=== PATIENT | male | born 1950 | race Caucasian/White ===

== ENCOUNTER → 2024-03-29 14:01 | Outpatient (REF) | payer MEDICARE, OTHER, SELFPAY | LOC: RAD 14:01 | PROVIDERS: ATTENDING PHYSICIAN Family Medicine | DX: M79.89 Other specified soft tissue disorders (principal) | CPT/HCPCS: 73610; 73630 ==

== ENCOUNTER → 2024-08-11 10:30 | Outpatient (REF) | payer MEDICARE, OTHER, SELFPAY | LOC: RAD 10:30 | PROVIDERS: ATTENDING PHYSICIAN Internal Medicine Critical Care Medicine; FAMILY PHYSICIAN Family Medicine | DX: F17.210 Nicotine dependence, cigarettes, uncomplicated (principal) | CPT/HCPCS: 71271 ==

== ENCOUNTER → 2025-01-04 16:47 | Outpatient (REF) | payer MEDICARE, OTHER, SELFPAY | LOC: RAD 16:47 | PROVIDERS: ATTENDING PHYSICIAN Family Medicine | DX: R41.82 Altered mental status, unspecified (principal) | CPT/HCPCS: 70450 ==

== ENCOUNTER → 2025-02-17 10:38 | Outpatient (REF) | payer MEDICARE, OTHER, SELFPAY | LOC: RAD 10:38 | PROVIDERS: ATTENDING PHYSICIAN Physician Assistant | DX: J22 Unspecified acute lower respiratory infection (principal) | CPT/HCPCS: 71046 ==

== ENCOUNTER 2025-02-20 19:44 | Inpatient (IN) | payer MEDICARE, OTHER, SELFPAY ==
[2025-02-20] VITALS (8 sets, daily range): BP systolic 95–132; BP diastolic 43–66; BMI 20.4
[2025-02-20 15:20] LABS: % Basophils 0.4 % (0-2); % Eosinophils 0.2 % (0-6); % Immature Granulocytes 0.6 % (0-0.5); % Lymphocytes 17.3 % (20.5-51.1); % Monocytes 10.6 % (1.7-9.3); % Neutrophils 70.9 % (42.2-75.2); Absolute Lymphocytes 0.9 10^3/uL (1.2-3.4); Absolute Monocytes 0.5 10^3/uL (0.1-0.6); Absolute Neutrophils 3.5 10^3/uL (1.4-6.5); Hematocrit 28.7 % (39.0-52.0); Hemoglobin 9.9 g/dL (13.0-18.0); Mean Corp Hgb Conc. 34.5 g/dL (33.0-37.0); Mean Corpuscular Volume 104.4 fL (80.0-94.0); Nucleated Red Blood Cells % 0 % (-); Platelet Count 248 10^3/uL (130-400); Red Blood Cell Count 2.75 10^6/uL (4.70-6.10); Red Cell Dist. Width 17.9 % (11.5-14.5); White Blood Cell Count 4.9 10^3/uL (4.8-10.8)
[2025-02-20 15:36] LABS: ALT (SGPT) 27 U/L (0-50); AST (SGOT) 23 U/L (17-59); Albumin 3.4 g/dl (3.5-5.0); Alkaline Phosphatase 69 U/L (38-126); Blood Urea Nitrogen 25 mg/dl (9-20); Carbon Dioxide 25 mmol/L (22-30); Chloride 102 mmol/L (98-107); Glucose 157 mg/dl (70-99); Potassium 4.6 mmol/L (3.5-5.1); Sodium 136 mmol/L (135-145); eGFR > 60.00
--- NOTE | 2025-02-20 18:36 | ED.GENMED ---
History of Present Illness
General
Chief Complaint: Pneumonia Symptoms
Source: patient and spouse
Exam Limitations: none
Time Seen by Provider: 02/20/25 18:06
Nursing documentation reviewed up to this point in time: agreed with
History of Present Illness
History of Present Illness:
Patient with history of glioblastoma, presents to ED secondary to persistent fever, cough, and shortness of breath, along with decreased appetite over the past 6 days. Patient was evaluated by his primary care physician 3 days ago. Outpatient
chest x-ray revealed pneumonia and he was started on doxycycline and Augmentin, without improvement symptoms. Denies vomiting or diarrhea. Denies chest pain. Denies recent travel. Denies sick contact.
Review of Systems
Review of Systems
Allergies reviewed?: Yes
All Other Systems: ROS reviewed and negative except as documented in HPI and ROS
Constitutional: Reports fever and chills
EENT: Reports no symptoms
Respiratory: Reports cough and trouble breathing
Cardiac: Reports no symptoms
ABD/GI: Reports no symptoms; Denies abdominal pain, vomiting or diarrhea
: Reports no symptoms
Musculoskeletal: Reports no symptoms
Skin: Reports no symptoms
Neurological: Reports no symptoms
Phy Exam
Physical Exam
Physical Exam:
Physical Exam
General: mild distress, not acutely ill. febrile. tachycardic
Head: nc/at. eomi
Neck: supple. no meningeal signs.
Heart: s1/s2 regular rate and rhythm, no murmur.
Lungs: no acute respiratory distress. diminished breath sounds bilaterally
Abdomen: normal bowel sounds. not tender.
Neuro: alert and oriented x 3. no focal neurological deficits
Skin: no rash
Psychiatric: well kept. interactive and cooperative
Extremities: no edema. no calf tenderness.
Course
Orders/Labs/Results
Orders:
Orders
02/20/25 15:14
Complete Blood Count/With Diff Urgent
Comprehensive Metabolic Panel Urgent
02/20/25 18:31
Lactic Acid Q4H
Comment: CANCEL 2nd LACTIC ACID IF 1st LACTIC ACID IS LESS THAN 2
Blood Culture Q30M
JETT Source: Blood/Venous
Specimen Description:
02/20/25 18:33
Piperacillin/Tazo 3.375 Gram [Zosyn] 3.375 gram in 50 ml IV NOW
02/20/25 18:34
0.9% Sodium Chloride 500 ml [Nss] 500 ml IV BOLUS
Albuterol Nebs [Ventolin Nebules] 2.5 mg INH R NOW STA
Guaifenesin/Codeine Solution [Robitussin AC] 10 ml PO NOW STA
02/20/25 18:39
COVID-19 Antigen Urgent
Source: Nasal Swab
Blood Culture Q30M
JETT Source: Blood/Venous
Specimen Description:
Influenza A+B Rapid Molecular Urgent
JETT Source: Nasal Swab
Specimen Description:
02/20/25 19:25
Vancomycin [Vancocin] 1,500 mg 0.9% Sodium Chloride 500 ml [Nss] 500 ml IV NOW
02/20/25 19:28
Admit/Transfer Patient As Directed
Co-Sign Provider:
Level of Care: Inpatient admission
Assign to:: Medical/Surgical
Physician / Group: hospitalist
Diagnosis: pneumonia
Reason for Hospitalization: pneumonia
Expected length of stay greater than two midnights?: Yes
ELOS- Estimated Length of Stay in days: 2
I certify the patient meets the requirements for IP care: Yes
PRN Pain Medication Management As Directed
May give lesser potent ordered pain med per pt: Yes
preference::
Protocol:: Medication orders for pain may be administered in a
manner that supports deferring to patient preference
when the pt is:
- Requesting an ordered lesser potent pain medication.
Least to most potent pain medications are defined
as: acetaminophen < NSAID < tramadol < opioids
(morphine, oxycodone, hydromorphone).
- Requesting a lesser dose of the same medication IF
ORDERED.
- Requesting a less intrusive route of administration
if both routes are prescribed by the provider (PO <
IV).
02/20/25 19:29
Code Status As Directed
Resuscitation Status: Full Code
02/20/25 22:30
Lactic Acid Q4H
Comment: CANCEL 2nd LACTIC ACID IF 1st LACTIC ACID IS LESS THAN 2
Abnormal Lab Results
02/20/25 02/20/25
15:14 18:31
RBC 2.75 L 10^6/uL
(4.70-6.10)
Hgb 9.9 L g/dL
(13.0-18.0)
Hct 28.7 L %
(39.0-52.0)
MCV 104.4 H fL
(80.0-94.0)
MCH 36.0 H pg
(27.0-31.0)
RDW 17.9 H %
(11.5-14.5)
Absolute Lymphs (auto) 0.9 L 10^3/uL
(1.2-3.4)
Immature Gran % 0.6 H %
(0-0.5)
Lymphocytes % 17.3 L %
(20.5-51.1)
Monocytes % 10.6 H %
(1.7-9.3)
BUN 25 H mg/dl
(9-20)
Glucose 157 H mg/dl
(70-99)
Lactic Acid 2.4 H mmol/L
(0.7-2.0)
Total Protein 6.0 L g/dl
(6.3-8.2)
Albumin 3.4 L g/dl
(3.5-5.0)
04/28/25 15:14
02/20/25 15:14
Vital Signs
Initial and Last Documented VS:
Initial Vital Signs
Temp Pulse Resp BP Pulse Ox
97.9 F 100 18 116/65 98
02/20/25 15:02 02/20/25 15:02 02/20/25 15:02 02/20/25 15:02 02/20/25 15:02
Last Documented Vital Signs
Temp Pulse Resp BP Pulse Ox
98.7 F 110 28 132/57 94
02/20/25 18:20 02/20/25 18:18 02/20/25 18:18 02/20/25 18:18 02/20/25 18:20
MDM/Problems Addressed
MDM/Problems Addressed:
Chest x-ray from 02/17/2025 reviewed. History, exam, and chest x-ray consistent with sepsis, secondary to pneumonia. Patient will be started on broad spectrum abx and admitted for further evaluation/treatment.
*Critical Care Note
Total Time (30-74mins, 75-104mins- exclusive of procedures): Not Applicable
ED Attending Note
-
Portions of this chart may have been created with voice recognition software.� Occasional wrong word or��sound alike� substitutions may have occurred due to the inherent limitations of voice recognition software.
Discharge Plan
Departure
Patient Disposition: Admit
Date of Disposition: 02/20/25
Time of Disposition: 18:40
Admit to: Telemetry
Presentation/result/management discussed w/ accepting MD/DO: Hospitalist
Discharge Problem:
Sepsis, Pneumonia
Interventions
Interventions:
*Risk Screen - Suicide Last Done: 02/20/25 15:05
*General Assessment Last Done: 02/20/25 15:05
*Neglect/Abuse Screening Last Done: 02/20/25 15:05
*ED- Fall Risk Assessment Last Done: 02/20/25 18:08
*ED COVID-19 Vaccine History Last Done: 02/20/25 15:05
ED- Cardiac Assessment Last Done: 02/20/25 18:20
ED- Pulmonary Assessment Last Done: 02/20/25 18:20
[2025-02-20] MEDS: NSS 500 IV (18:48)
[2025-02-20] MEDS: ROBITUSSIN AC 10 ML PO (18:48)
[2025-02-20] MEDS: ZOSYN 50 IV (18:50)
[2025-02-20] MEDS: VENTOLIN NEBULES 2.5 MG INH (18:50)
[2025-02-20 18:59] LABS: Lactic Acid 2.4 mmol/L (0.7-2.0)
[2025-02-20 19:05] LABS: COVID-19 Antigen Negative (Negative)
--- NOTE | 2025-02-20 19:20 | HPS.HSE ---
Family Physician
-
Family Physician: Karthik Whatley
Chief Complaint
-
Cough fevers and shortness of breath
History of Present Illness
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
worsening cough.
Patient started having symptoms about 5 days ago. Was seen in clinic and had a x-ray done. The x-ray on 425 shows right lower lobe inferior opacity concerning for pneumonia. Patient was started on doxycycline and Augmentin. After 2 days patient
continued to have cough fevers and chills. Is weak. Cough is productive of brownish sputum. He reports dyspnea on exertion. He denies having any chest pain.
His last dose of days was 1 week ago for 7 days.
He had craniotomy on January 06 and is pending radiation.
He has nodules on x-ray which are new compared to prior.
Here in the emergency department he was afebrile, blood pressure was 135/57 he was tachycardic to 110 and was satting 94% on room air. Respiratory rate was 28.
CBC was unremarkable we will white count of 4.9 hemoglobin of 10 and bili of 248. Lactic acid was elevated 2.4. Electrolytes BUN/creatinine were normal.
Medical History
Past Medical History
Past Medical History: Reports Cancer (MDS, stage IV glioblastoma status post craniectomy), COPD (Not on home O2), HTN and Other (On seizure prophylaxis)
Past Surgical History: Reports Brain (Left temporal craniotomy)
Social History
Tobacco: Smoker
Alcohol: None
Drug: None
Personal:
Living: With Family
Family History
Family History: Not pertinent
Allergies / Home Medications
Allergies reflects when Allergies were last updated in [facility].
Home Medications with original date entered in [facility]
Allergy/Medication List:
Allergies
Allergy/AdvReac Type Severity Reaction Status Date / Time
No Known Allergies Allergy Unverified 02/20/25 15:04
Home Medications
levocetirizine 5 mg tablet 5 mg PO DAILYPRN PRN nasal congestion 08/14/22
tamsulosin 0.4 mg capsule 0.8 mg PO DAILY 08/14/22
verapamil 80 mg tablet 80 mg PO BID 08/14/22
acetaminophen 325 mg tablet (Tylenol) 650 mg PO Q6HPRN PRN MILD PAIN 02/20/25
amoxicillin 875 mg-potassium clavulanate 125 mg tablet 1 tab PO BID 02/20/25
azacitidine 100 mg solution for injection 0 mg IV DIRECTED 02/20/25
budesonide 160 mcg-glycopyr 9 mcg-formot 4.8 mcg/actuation HFA inhaler (ESBATechztri Aerosphere) 2 inh inhalation R BID 02/20/25
doxycycline hyclate 100 mg capsule 100 mg PO BID 02/20/25
epoetin karly-epbx 3,000 unit/mL injection solution (Retacrit) 0 unit SC TU 02/20/25
levetiracetam 100 mg/mL oral solution (Keppra) 500 mg PO BID 02/20/25
lidocaine-prilocaine 2.5 %-2.5 % topical cream 1 applic topical DAILYPRN PRN PORT ACCESS 02/20/25
ondansetron HCl 8 mg tablet 8 mg PO [id number] PRN NUASEA 02/20/25
therapeutic multivitamin 1 tab PO DAILY 02/20/25
Review of Systems
-
Unable to obtain full review of systems at this time due to: Dementia
Constitutional: Reports Fever
EENT: Reports No Symptoms
Respiratory: Reports Cough
Cardiac: Reports No Symptoms
Abdomen/GI: Reports No Symptoms
: Reports No Symptoms
Musculoskeletal: Reports No Symptoms
Skin: Reports No Symptoms
Neurological: Reports No Symptoms
Endocrine: Reports No Symptoms
Hematologic/Lymphatic: Reports No Symptoms
Psych: Reports No Symptoms
Physical Exam
Vital Signs
Vital Signs
Temp Pulse Resp BP Pulse Ox
98.7 F 110 28 132/57 94
02/20/25 18:20 02/20/25 18:18 02/20/25 18:18 02/20/25 18:18 02/20/25 18:20
Physical Exam
General: Well Developed, Well Nourished, No Apparent Distress and Comfortable
HEENT: NormoCephalic, Anicteric, Moist mucous membranes and Atraumatic
Respiratory: Crackles
Cardiac: S1/S2 and Tachycardia
Breast: Deferred by me
GI: Soft, Non Tender, Non Distended and Normal Bowel Sounds
Rectal: Deferred by Provider
Genito-urinary: Deferred by me
Musculoskeletal: No Clubbing, No Cyanosis and No Edema
Skin: Warm
Neuro: AO x 3
Hematologic/Lymphatic: No Lymphadenopathy
Psych: Calm
Laboratory Results
-
02/20/25 15:14
02/20/25 15:14
Laboratory Results
Lactic Acid 2.4 mmol/L (0.7-2.0) H 02/20/25 18:31
Total Bilirubin 1.0 mg/dl (0.2-1.3) 02/20/25 15:14
AST 23 U/L (17-59) 02/20/25 15:14
ALT 27 U/L (0-50) 02/20/25 15:14
Alkaline Phosphatase 69 U/L (38-126) 02/20/25 15:14
Data Reviewed
-
Diagnostic Radiology: Report Reviewed by me
Lab Data: Labs Reviewed by me
Old Records: Reviewed
Impression/Plan
-
IMPRESSION:
75-year-old with history of glioblastoma status post craniectomy status post steroid taper, MDS RVD and Retacrit, COPD not on home O2, here with cough and shortness of breath x 4 days. Fevers at home. Has been on outpatient Augmentin and
doxycycline for the last 20 days without improvement. Here is hemodynamically stable tachycardic with elevated lactic acid. Afebrile. CBC unremarkable. Not hypoxic.
PLAN:
1.Pneumonia -pneumonia complaints patient with failure of outpatient antibiotics
- admit to med/surg
- broad spec abx with Vanc/zosyn
- check urinary legionella and strep ag
- check sputum culture
- blood cultures if febrile
- rule out influenza
- F/U xray
- prednisone 40 daily, duonebs prn
- continue home Breztri
2. GBM - s/p craniectomy with residual tumor
- finished dexamethasone taper
- continue keppra
- DVT PPX - heparin sq
Code Status - Full Code
[2025-02-20] MEDS: VANCOCIN 530 MG IV (19:52)
--- NOTE | 2025-02-20 22:39 | PHA.VAN.IN ---
Assessment
- Assessment
Renal Function: Unknown baseline
Concomitant Antimicrobials: ZOSYN
- Previous Dosing Experience
Previous Regimen: NONE
AUC Dosing Plan
- Dosing Variables
Dosing Weight (kg): 64.5
Dosing CrCl (ml/min): 83
Vd coefficient (L/kg): 0.7
- Empiric Dosing
Initial / Loading Dose: 1500MG
Maintenance Regimen: 750MG IV Q12H
Estimated AUC (mcg*h/mL): 470
Estimated Peak (mcg*h/mL): 28.4
Estimated Trough (mcg/ml): 12.7
Estimated Half Life (H): 9.5
Pharmacokinetics Vancomycin I
- -
Patient Age: 75
Patient Sex: Male
Vancomycin Day #: 1
Indication: Pulmonary/Respiratory
Requesting Provider: PAULA
Height / Weight:
Height 5 ft 10 in
Actual Weight 64.467 kg
Pertinent Past Medical History: MDS;GLIOBLASTOMA STAGE 4
- Vital Signs / Lab Results
Temp Pulse Resp BP Pulse Ox
100.4 F H 117 16 98/61 95
02/20/25 21:30 02/20/25 21:30 02/20/25 21:30 02/20/25 21:30 02/20/25 21:30
Lab Results - Hematology
02/20/25
15:14
WBC 4.9
Lab Results - Chemistry
02/20/25
15:14
BUN 25 H
Creatinine 0.7
Albumin 3.4 L
02/20/25
18:31
Lactic Acid 2.4 H
Microbiology Results
02/20/25 18:39 Influenza Types A & B (FRANCISCO) - Final
Nasal Swab Negative for Influenza A & B, NAAT
Negative results must be combined with clinical observations
and patient history.
Nucleic Acid Amplification test (NAAT)performed on the
[employer] platform.
[2025-02-20] MEDS: KEPPRA 500 MG PO (22:42)
[2025-02-20] MEDS: MUCINEX 600 MG PO (22:42)
[2025-02-20] MEDS: ISOPTIN 80 MG PO (22:42)
[2025-02-20 23:40] LABS: Lactic Acid 2.9 mmol/L (0.7-2.0)
[2025-02-21] MEDS: ZOSYN 50 IV ×4 (00:49→17:31)
[2025-02-21] MEDS: HEPARIN 5000 UNITS SC ×3 (00:53→17:29)
[2025-02-21] MEDS: NSS 1000 IV ×2 (00:53→12:22)
[2025-02-21 04:10] LABS: Hematocrit 23.5 % (39.0-52.0); Hemoglobin 8.2 g/dL (13.0-18.0); Mean Corp Hgb Conc. 34.9 g/dL (33.0-37.0); Mean Corpuscular Hgb 36.6 pg (27.0-31.0); Mean Corpuscular Volume 104.9 fL (80.0-94.0); Mean Platelet Volume 10.6 fL (7.4-10.4); Platelet Count 215 10^3/uL (130-400); Red Blood Cell Count 2.24 10^6/uL (4.70-6.10); Red Cell Dist. Width 18.3 % (11.5-14.5); White Blood Cell Count 4.1 10^3/uL (4.8-10.8)
[2025-02-21 04:34] LABS: Blood Urea Nitrogen 22 mg/dl (9-20); Calcium 8.2 mg/dl (8.4-10.2); Carbon Dioxide 24 mmol/L (22-30); Chloride 104 mmol/L (98-107); Estimated Creatinine Clearance 83 ml/min; Glucose 116 mg/dl (70-99); Lactic Acid 0.9 mmol/L (0.7-2.0); Potassium 4.1 mmol/L (3.5-5.1); Sodium 135 mmol/L (135-145); eGFR > 60.00
--- NOTE | 2025-02-21 04:44 | PTCARENOTE ---
PT admitted from ed. Ambulated from stretcher to bed. AAOx3, confused at times. at bedside to help answer questions. Oriented to room and call pastrana. Bed alarm in place.
[2025-02-21 05:20] LABS: Hepatitis C Antibody Negative (Negative)
[2025-02-21] MEDS: VANCOCIN 150 IV ×2 (05:36→18:12)
[2025-02-21] MEDS: SYMBICORT 160/4.5 MCG INHALER 2 PUFF INH ×2 (07:46→19:47)
[2025-02-21 07:57] VITALS: BP 112/48
[2025-02-21] MEDS: DELTASONE 40 MG PO (08:24)
[2025-02-21] MEDS: FLOMAX 0.8 MG PO (08:24)
[2025-02-21] MEDS: ISOPTIN 80 MG PO (08:24)
[2025-02-21] MEDS: KEPPRA 500 MG PO ×2 (08:25→20:53)
[2025-02-21] MEDS: MUCINEX 600 MG PO ×2 (08:26→20:53)
--- NOTE | 2025-02-21 09:13 | PHA.VAN.FU ---
Vancomycin Assessment / Plan
- Assessment
Renal Function: Stable
WBC's are: WNL
Concomitant Antimicrobials: piperacillin/tazobactam
- Dosing Plan
Continue: Vanc 750mg Q12H
- Monitoring Plan
No level(s) ordered at this time: consider levels in next few days
MRSA Screen: Ordered per protocol
- Follow Up
Pharmacy will continue to follow.
Vancomycin Follow UP
- -
Patient Age: 75
Patient Sex: Male
Vancomycin Day #: 2
Indication: Pulmonary/Respiratory
Requesting Provider: Dr. Yanez
Pertinent Antimicrobial Allergies:
NKDA
Height / Weight:
Height 5 ft 10 in
Actual Weight 64.467 kg
Pertinent Past Medical History: Glioblastoma
- Vital Signs / Lab Results
Temp Pulse Resp BP Pulse Ox
98.9 F 85 20 112/48 92
02/21/25 07:57 02/21/25 08:24 02/21/25 07:57 02/21/25 08:24 02/21/25 07:57
Lab Results - Hematology
02/20/25 02/21/25
15:14 03:57
WBC 4.9 4.1 L
Lab Results - Chemistry
02/20/25 02/21/25
15:14 03:57
BUN 25 H 22 H
Creatinine 0.7 0.7
Estimated Creat Clear 83
Albumin 3.4 L
02/20/25 02/20/25 02/21/25
18:31 23:23 03:57
Lactic Acid 2.4 H 2.9 H 0.9
Microbiology Results
02/20/25 18:39 Influenza Types A & B (FRANCISCO) - Final
Nasal Swab Negative for Influenza A & B, NAAT
Negative results must be combined with clinical observations
and patient history.
Nucleic Acid Amplification test (NAAT)performed on the
[employer] platform.
[2025-02-21 14:29] VITALS: BMI 20.4
--- NOTE | 2025-02-21 14:53 | W.PN.HOSP.TC ---
Addendum entered and electronically signed by Yash Espinoza MD 02/21/25 15:11:
correction abx are Vanco and Zosyn
Original Note:
Today's Communication/Plan
-
speech therapy to eval swallowing, diet to be ordered post
continue Rocephin/Azith
Assessment / Plan
Assessment / Plan
75-year-old with history of glioblastoma status post craniectomy status post steroid taper, MDS RVD and Retacrit, COPD not on home O2, here with cough and shortness of breath x 4 days. Fevers at home. Has been on outpatient Augmentin and
doxycycline for the last 20 days without improvement. Here is hemodynamically stable tachycardic with elevated lactic acid. Afebrile. CBC unremarkable. Not hypoxic.
PLAN:
1.Pneumonia -pneumonia complaints patient with failure of outpatient antibiotics
- admit to med/surg
- broad spec abx with Vanc/zosyn
- check urinary legionella and strep ag
- check sputum culture
- blood cultures if febrile
- Neg influenza
- Chest xray: Slight increased opacity in the right upper lobe suspicious for mild pneumonia.
- prednisone 40 daily, duonebs prn
- continue home Breztri
Speech Therapy consult, diet to be ordered post evaluation
2. GBM - s/p craniectomy with residual tumor
- finished dexamethasone taper
- continue keppra
- DVT PPX - heparin sq
Code Status - Full Code
Anticipated Discharge: > 48 hours
Subjective/Interval History
-
Date of Service: February 21, 2025
awake, alert
Objective Data
-
Labs:
Laboratory Results
02/21/25
03:57
WBC 4.1 L
Hgb 8.2 L
Hct 23.5 L
Plt Count 215
Sodium 135
Potassium 4.1
Chloride 104
Carbon Dioxide 24
BUN 22 H
Creatinine 0.7
Glucose 116 H
Calcium 8.2 L
Vital Signs:
Vital Signs
Temp Pulse Resp BP Pulse Ox
98.8 F 85 20 112/48 92
02/21/25 12:57 02/21/25 08:24 02/21/25 07:57 02/21/25 08:24 02/21/25 07:57
I&O
02/20/25 02/21/25 02/22/25
06:59 06:59 06:59
Intake Total 480 / 480
Balance 480 / 480
Review of Systems
-
History Source: Patient and Family ( in room)
Constitutional: Reports No Symptoms and Fever (Tmax 100.5)
EENT: Reports No Symptoms Reported and Other (craniotomy scar left side of head)
Respiratory: Reports Cough
Cardiac: Reports No Symptoms; Denies Chest Pain
Abdomen/GI: Reports No Symptoms
Genitourinary: Reports No Symptoms
Physical Exam
-
General: Well Developed, Well Nourished and No Apparent Distress
HEENT: Normocephalic, Atraumatic and Moist Mucous Membranes
Respiratory: Other (coarse BS on Rt upper lung area)
Cardiac: Regular Rhythm and S1/S2
GI: Soft, Nontender and Nondistended
Musculoskeletal: No Clubbing, No Cyanosis and No Edema
Neuro: Awake, Alert, Oriented and Other (slow speech)
[2025-02-21 15:00] VITALS: BP 124/75; PULSE 100; O2SAT 95
--- NOTE | 2025-02-21 15:42 | PTOTSP ---
Dysphagia Eval
Patient is at an elevated risk for dysphagia given PMH (i.e., stage IV glioblastoma s/p left craniectomy 01/06/2025, COPD) and reported chronic occasional solid dysphagia with sensation of stasis and coughing. This was not noted during clinical
bedside swallow eval. Patient is now admitted with RUL PNA.
Recommend:
1. Regular, Thin
2. Medications as best tolerated
3. General aspiration and reflux precautions
4. FEES to objectively assess swallowing and r/o aspiration contributing to PNA
[2025-02-21 15:55] VITALS: BP 126/53
[2025-02-21 16:10] VITALS: BP 124/75; O2SAT 100
--- NOTE | 2025-02-21 17:20 | CM ---
Alert awake oriented patient who lives with his Esperanza in a 2 story home with 1 step to enter and 12 steps to bed and bathroom. He is assisted in all activities of daily living.PT OT ordered will need for dc planning.
No VN hx / No SNF history
Pharmacy [facility]
PCP DR Karthik Whatley
PLAN Need PT OT for dc plan
[2025-02-21] MEDS: ISOPTIN PO (21:01)
--- NOTE | 2025-02-21 21:10 | VATNOTE ---
called to redress pt.s port. Inquired of pt. how dsg came off; he stated that he 'didn't think I needed it'; cleansed with chlorhexadine scrub, applied new steristrips and tegaderm. Biopatch was already in place. Encouraged pt not to remove dsg
again.
[2025-02-21 23:35] VITALS: BP 130/55
[2025-02-21] MEDS: ROBITUSSIN DM 5 ML PO (23:59)
[2025-02-22] MEDS: HEPARIN 5000 UNITS SC ×3 (00:01→17:44)
[2025-02-22] MEDS: NSS 1000 IV (04:22)
[2025-02-22] MEDS: ZOSYN 50 IV ×4 (05:08→17:44)
[2025-02-22] MEDS: VANCOCIN 150 IV (05:09)
[2025-02-22 05:35] LABS: Hematocrit 23.3 % (39.0-52.0); Hemoglobin 8.3 g/dL (13.0-18.0); Mean Corp Hgb Conc. 35.6 g/dL (33.0-37.0); Mean Corpuscular Hgb 36.7 pg (27.0-31.0); Mean Corpuscular Volume 103.1 fL (80.0-94.0); Mean Platelet Volume 10.3 fL (7.4-10.4); Platelet Count 273 10^3/uL (130-400); Red Blood Cell Count 2.26 10^6/uL (4.70-6.10); Red Cell Dist. Width 18.1 % (11.5-14.5); White Blood Cell Count 4.2 10^3/uL (4.8-10.8)
[2025-02-22 05:46] LABS: Blood Urea Nitrogen 16 mg/dl (9-20); Calcium 8.3 mg/dl (8.4-10.2); Carbon Dioxide 23 mmol/L (22-30); Chloride 106 mmol/L (98-107); Estimated Creatinine Clearance 83 ml/min; Glucose 105 mg/dl (70-99); Potassium 3.8 mmol/L (3.5-5.1); Sodium 137 mmol/L (135-145); eGFR > 60.00
--- NOTE | 2025-02-22 06:00 | PTCARENOTE ---
PT has a frequent moist cough, messaged MAINTENANCE SERVICE DISPATCHER for cough medicine. Robitussin ordered and reduced coughing.
--- NOTE | 2025-02-22 06:37 | VATNOTE ---
CALLED BY PCN THAT PT HAD PARTIALLY REMOVED SUBQ PORT DRSG AGAIN. RD PER PROTCOL AND ADDED ADDITIONAL STERI STRIPS TO PREVENT CARNES FROM BECOMING DISLODGED. SITE APPEARS TO BE WNL.
[2025-02-22 07:28] VITALS: BP 119/47
[2025-02-22 07:43] LABS: Absolute Neutrophils -Man Diff 2.2 10^3/uL (1.4-6.5); Anisocytosis Slight; Band Neutrophils 0 % (0-3); Lymphocytes 40 % (20-51); Monocytes 4 % (2-9); Normal RBC Morphology No; Platelets Checked Yes; Segmented Neutrophils 54 % (42-75)
[2025-02-22 07:44] LABS: Burr Cells Slight; Ovalocytes Slight; Total Cells Counted 100
[2025-02-22] MEDS: SYMBICORT 160/4.5 MCG INHALER INH ×2 (07:56→20:07)
--- NOTE | 2025-02-22 08:18 | PN.CDI ---
CDI
- -
CDI:
Physician Documentation Request
Admit Date: 02/20/25 19:44
Dear Doctor Alexis,
Please review the following and provide your response in the progress notes.
Clinical Indicators:
Puppet Maker, 02/21
#...weight loss of 5% in 1 month and < 75% estimated needs for 1 month
#...pt meets AND/ASPEN criteria for moderate protein calorie malnutrition of chronic illness.
Based on the above and your clinical assessment, please clarify the patient's nutritional status:
Moderate protein calorie malnutrition of chronic illness
Other (please specify)
Wadley Criteria ([facility] Hospitalist 2017)
2 or more criteria must be present for either
non severe or severe malnutrition
Note that the criteria differs related to the
presence of an acute or chronic illness
Chronic Illness
Energy Intake Non Severe: <75% for >1 month
Severe: <75% for >1 month
Weight Loss Non Severe: 5% over 1 month
7.5% over 3 months
10% over 6 months
20% over 1 year
Severe: >5% over 1 month
>7.5% over 3 months
>10% over 6 months
>20% over 1 year
Body Fat Non Severe: Mild Loss
Severe: Severe Loss
Muscle Mass Non Severe: Mild Loss
Severe: Severe Loss
Use of terms such as suspected, likely, concern for, or probable (associated with a specific diagnosis that is being evaluated, monitored, or treated as if it exists) are acceptable and can be coded in the inpatient setting, when documented at the
time of discharge.
Thank you,
Erendira Nolan RN BSN CCDS
CDI Specialist
Please contact via tiger text
Please use your independent medical judgment in providing your response.
[2025-02-22] MEDS: DELTASONE 40 MG PO (09:02)
[2025-02-22] MEDS: KEPPRA 500 MG PO ×2 (09:02→20:54)
[2025-02-22] MEDS: MUCINEX 600 MG PO ×2 (09:02→20:55)
[2025-02-22] MEDS: ISOPTIN 80 MG PO ×2 (09:02→20:54)
[2025-02-22] MEDS: FLOMAX 0.8 MG PO (09:02)
--- NOTE | 2025-02-22 09:18 | PN.CDI ---
CDI
- -
CDI:
Physician Documentation Request
Admit Date: 02/20/25 19:44
Dear Doctor Alexis,
Please review the following and provide your response in the progress notes.
Clinical Indicators:
Laboratory Tests
02/20/25 02/21/25 02/22/25
15:14 03:57 05:05
RBC 2.75 L 2.24 L 2.26 L
Hgb 9.9 L 8.2 L 8.3 L
Hct 28.7 L 23.3 L
MCV 104.4 H 104.9 H 103.1 H
MCH 36.0 H 36.6 H 36.7 H
RDW 17.9 H 18.3 H 18.1 H
Based on the above and your clinical assessment, please clarify the most likely diagnosis/condition evaluated, monitored and/or treated?
Anemia of chronic disease - indicate if neoplastic disease, CKD or other
Chronic iron deficiency anemia due to blood loss
Vitamin B deficiency anemia - indicate3 etiology, such as intrinsic factor deficiency, malabsorption, transcobalamin II deficiency, dietary etc.
Protein deficiency anemia
Other(please specify)
Use of terms such as suspected, likely, concern for, or probable (associated with a specific diagnosis that is being evaluated, monitored, or treated as if it exists) are acceptable and can be coded in the inpatient setting, when documented at the
time of discharge.
Thank you,
Erendira Nolan RN BSN CCDS
CDI Specialist
Please contact via tiger text
Please use your independent medical judgment in providing your response.
[2025-02-22] MEDS: NSS IV (13:45)
--- NOTE | 2025-02-22 14:57 | PTOTSP ---
Videofluoroscopic swallow study
Mild oral/pharyngeal dysphagia. See patient care note for details.
Recommend:
1. Regular, Thin
2. Medications as best tolerated
3. Supervision, OOB to chair for meals and/or upright to 90 degrees, small sips/bites, slow rate, alternate solids/liquids, reflux precautions
4. Brief f/u for instruction/carry over of compensations
[2025-02-22 15:47] VITALS: BP 135/57
--- NOTE | 2025-02-22 17:16 | W.PN.HOSP.TC ---
Today's Communication/Plan
-
continue Zosyn, stop Vanco
taper Prednisone
Assessment / Plan
Assessment / Plan
75-year-old with history of glioblastoma status post craniectomy status post steroid taper, MDS RVD and Retacrit, COPD not on home O2, here with cough and shortness of breath x 4 days. Fevers at home. Has been on outpatient Augmentin and
doxycycline for the last 20 days without improvement. Here is hemodynamically stable tachycardic with elevated lactic acid. Afebrile. CBC unremarkable. Not hypoxic.
PLAN:
1.Pneumonia -pneumonia complaints patient with failure of outpatient antibiotics
- admit to med/surg
- broad spec abx with Vanc/zosyn
- check urinary legionella and strep ag
- check sputum culture
- blood cultures if febrile
- Neg influenza
- Chest xray: Slight increased opacity in the right upper lobe suspicious for mild pneumonia.
- will taper prednisone 40 daily, duonebs prn
- continue home Breztri
Speech Therapy consult appreciated
underwent VSE with recommendation for regular diet with thin liquids
2. GBM - s/p craniectomy with residual tumor, surgery performed by Dr. Jessica Durham on January 09, for XRT going to Dr. Egan at [place]
- finished dexamethasone taper 1 day prior to admission
- continue keppra
- DVT PPX - heparin sq
XRT to start on Tuesday 02/27
Moderate protein calorie malnutrition of chronic illness
Anemia of chronic disease - hx of Myelodysplastic Syndrome for past 2.5 yrs, goes to Dr. Bryson at [place]
Code Status - Full Code
Anticipated Discharge: 24 - 48 hours
Subjective/Interval History
-
Date of Service: February 22, 2025
Breathing better
Objective Data
-
Labs:
Laboratory Results
02/22/25
05:05
WBC 4.2 L
Hgb 8.3 L
Hct 23.3 L
Plt Count 273 D
Sodium 137
Potassium 3.8
Chloride 106
Carbon Dioxide 23
BUN 16
Creatinine 0.7
Glucose 105 H
Calcium 8.3 L
Vital Signs:
Vital Signs
Temp Pulse Resp BP Pulse Ox
99.1 F 93 17 135/57 96
02/22/25 15:47 02/22/25 15:47 02/22/25 15:47 02/22/25 15:47 02/22/25 15:47
I&O
02/21/25 02/22/25 02/23/25
06:59 06:59 06:59
Intake Total 480 / 480 1240 / 1240
Balance 480 / 480 1240 / 1240
Review of Systems
-
History Source: Patient and Family ( in room)
Constitutional: Reports No Symptoms and Fever (Tmax 100.5, last fever 02/20 23:08)
EENT: Reports No Symptoms Reported and Other (craniotomy scar left side of head)
Respiratory: Reports Cough
Cardiac: Reports No Symptoms; Denies Chest Pain
Abdomen/GI: Reports No Symptoms
Genitourinary: Reports No Symptoms
Physical Exam
-
General: Well Developed, Well Nourished and No Apparent Distress
HEENT: Normocephalic, Atraumatic and Moist Mucous Membranes
Respiratory: Other (coarse BS on Rt upper lung area)
Cardiac: Regular Rhythm and S1/S2
GI: Soft, Nontender and Nondistended
Musculoskeletal: No Clubbing, No Cyanosis and No Edema
Neuro: Awake, Alert, Oriented and Other (slow speech)
[2025-02-22 23:50] VITALS: BP 139/59
[2025-02-23] MEDS: HEPARIN 5000 UNITS SC ×2 (00:16→08:32)
[2025-02-23] MEDS: ZOSYN 50 IV ×3 (00:19→12:19)
[2025-02-23] MEDS: NSS 500 IV ×2 (03:40→12:19)
[2025-02-23] MEDS: SYMBICORT 160/4.5 MCG INHALER 2 PUFF INH (07:44)
[2025-02-23 07:45] VITALS: BP 142/79
[2025-02-23] MEDS: ISOPTIN 80 MG PO (08:28)
[2025-02-23] MEDS: DELTASONE 20 MG PO (08:28)
[2025-02-23] MEDS: MUCINEX 600 MG PO (08:29)
[2025-02-23] MEDS: FLOMAX 0.8 MG PO (08:30)
[2025-02-23] MEDS: KEPPRA 500 MG PO (08:31)
--- NOTE | 2025-02-23 13:44 | W.PN.HOSP.TC ---
Today's Communication/Plan
-
dc to home
Assessment / Plan
Assessment / Plan
75-year-old with history of glioblastoma status post craniectomy status post steroid taper, MDS RVD and Retacrit, COPD not on home O2, here with cough and shortness of breath x 4 days. Fevers at home. Has been on outpatient Augmentin and
doxycycline for the last 20 days without improvement. He is hemodynamically stable, tachycardia much improved with elevated lactic acid that has resolved. Afebrile. CBC unremarkable. Not hypoxic.
PLAN:
1.Pneumonia -pneumonia complaints patient with failure of outpatient antibiotics
- admit to med/surg
- broad spec abx with Vanc/zosyn
- neg urinary legionella and strep ag neg
- blood cultures if febrile
- Neg influenza
- Chest xray: Slight increased opacity in the right upper lobe suspicious for mild pneumonia.
- will taper prednisone 40 daily-->20 mg daily, duonebs prn
- continue home Breztri
Speech Therapy consult appreciated
underwent VSE with recommendation for regular diet with thin liquids
2. GBM - s/p craniectomy with residual tumor, surgery performed by Dr. Jessica Durham on January 09, for XRT going to Dr. Egan at [place]
- finished dexamethasone taper 1 day prior to admission
- continue keppra
- DVT PPX - heparin sq
XRT to start on Tuesday 02/27
Moderate protein calorie malnutrition of chronic illness
Anemia of chronic disease - hx of Myelodysplastic Syndrome for past 2.5 yrs, goes to Dr. Bryson at [place]
Code Status - Full Code
Pt has done well, anxiously awaiting dc, but will need close follow up post discharge
reviewed with at bedside
see dictated note
More than 30 minutes spent in discharge including
Final examination of the patient
Summarizing hospital stay
Instructions for continuing care to all relevant caregivers
Preparation of discharge records, prescriptions, and referral forms
Total time spent (in minutes): 45
Anticipated Discharge: Today
Subjective/Interval History
-
Date of Service: February 23, 2025
Still coughing, though generally feels better
Objective Data
-
Vital Signs:
Vital Signs
Temp Pulse Resp BP Pulse Ox
98.4 F 101 16 149/79 97
02/23/25 07:45 02/23/25 07:47 02/23/25 07:47 02/23/25 08:28 02/23/25 10:24
I&O
02/22/25 02/23/25 02/24/25
06:59 06:59 06:59
Intake Total 1240 / 1240 240 / 240
Balance 1240 / 1240 240 / 240
Review of Systems
-
History Source: Patient and Family ( in room)
Constitutional: Reports No Symptoms and Fever (Tmax 100.5, last fever 02/20 23:08)
EENT: Reports No Symptoms Reported and Other (craniotomy scar left side of head)
Respiratory: Reports Cough
Cardiac: Reports No Symptoms; Denies Chest Pain
Abdomen/GI: Reports No Symptoms
Genitourinary: Reports No Symptoms
Physical Exam
-
General: Well Developed, Well Nourished and No Apparent Distress
HEENT: Normocephalic and Moist Mucous Membranes; Negative Atraumatic (s/p left craniotomy scar on left)
Respiratory: Other (coarse BS on Rt upper lung area have significantly decreased)
Cardiac: Regular Rhythm and S1/S2
GI: Soft, Nontender and Nondistended
Musculoskeletal: No Clubbing, No Cyanosis and No Edema
Neuro: Awake, Alert, Oriented and Other (slow speech)
Psych: Calm
[2025-02-23 15:12] VITALS: PULSE 89; O2SAT 96
[2025-02-23 15:30] VITALS: PULSE 89; O2SAT 96
[2025-02-23 15:56] VITALS: BP 128/59
--- NOTE | 2025-02-23 16:03 | PTCARENOTE ---
Pt iv removed by student, jami de-accessed. Pt has all belongings, paperwork reviewed, copy provided. Transport on unit to take pt to waiting car with .
--- NOTE | 2025-02-23 16:35 | CM ---
met with Terrence and his at bedside. IMM provided and signed copy placed on chart.
Pt is ready for discharge to home today and is known to [facility]. Pt's agreeable to resumption of care.
Referral sent to [facility] via [facility].
Plan: Discharge to home with Soo PANDEY.
[facility]
--- NOTE | 2025-02-23 18:05 | W.DS.TRANS ---
DC Summary - Epidemiology Internship
-
Discharge Instructions:
Discharge Diagnosis/Procedures Pneumonia
Diet Regular
Activity With assistance
Driving Restrictions No driving
Bathing Restrictions None
Blood Work CBC, CMP in 1-2 weeks
Others Tests CXR in 1 week
Other Services VN
Instructions:
Stand-Alone Forms:
Changes to Home Medications: Yes
Discharge Medications:
DC Medications w/original date entered in [employer]
levocetirizine 5 mg tablet 5 mg PO DAILYPRN PRN nasal congestion 08/14/22
tamsulosin 0.4 mg capsule 0.8 mg PO DAILY Urinary Issue 08/14/22
verapamil 80 mg tablet 80 mg PO BID Blood Pressure 08/14/22
acetaminophen 325 mg tablet (Tylenol) 650 mg PO Q6HPRN PRN MILD PAIN 02/20/25
azacitidine 100 mg solution for injection 0 mg IV DIRECTED Cancer 02/20/25
budesonide 160 mcg-glycopyr 9 mcg-formot 4.8 mcg/actuation HFA inhaler (Breztri Aerosphere) 2 inh inhalation R BID Lung/Breathing Issues 02/20/25
epoetin karly-epbx 3,000 unit/mL injection solution (Retacrit) 0 unit SC TU 02/20/25
levetiracetam 100 mg/mL oral solution (Keppra) 500 mg PO BID Seizures 02/20/25
lidocaine-prilocaine 2.5 %-2.5 % topical cream 1 applic topical DAILYPRN PRN PORT ACCESS 02/20/25
ondansetron HCl 8 mg tablet 8 mg PO [id number] PRN NUASEA 02/20/25
therapeutic multivitamin 1 tab PO DAILY Supplement 02/20/25
cefuroxime axetil 500 mg tablet 500 mg PO BID 10 days #20 tabs 02/23/25
guaifenesin 600 mg tablet, extended release 12 hr 600 mg PO Q12 #20 tabs 02/23/25
prednisone 10 mg tablet 10 mg PO DIRECTED #10 tabs 02/23/25
Home Medication Changes
Ceftin and Prednisone
Pending Results: No
== END 2025-02-23 16:15 | disposition home health service (06) | DRG 194 ==
LOC: 3 WEST ACU 19:44
PROVIDERS: Emergency Medicine; ADMITTING PHYSICIAN Internal Medicine; ATTENDING PHYSICIAN Internal Medicine; EMERGENCY PHYSICIAN Emergency Medicine; FAMILY PHYSICIAN Family Medicine
DX: J18.9 Pneumonia, unspecified organism (principal); C71.9 Malignant neoplasm of brain, unspecified; J44.0 Chronic obstructive pulmonary disease with (acute) lower respiratory infection; E44.0 Moderate protein-calorie malnutrition; D46.9 Myelodysplastic syndrome, unspecified; N40.0 Benign prostatic hyperplasia without lower urinary tract symptoms; D63.8 Anemia in other chronic diseases classified elsewhere; I10 Essential (primary) hypertension; Z79.52 Long term (current) use of systemic steroids; F17.200 Nicotine dependence, unspecified, uncomplicated; Z79.899 Other long term (current) drug therapy; Z11.52 Encounter for screening for COVID-19; Z68.20 Body mass index [BMI] 20.0-20.9, adult
CPT/HCPCS: 71046; 74230; 80048; 80053; 83605; 85025; 85027; 86803; 87040; 87070; 87205; 87449; 87502; 87811; 87899; 92610; 92611; 94640; 96374; 97163; 97167; 97530; 99285